=== PATIENT | male | born 1975 | race Caucasian/White ===

== ENCOUNTER 2020-08-19 21:42 | Emergency (ER) | payer BC, OTHER ==
[2020-08-19] MEDS ORDERED: DILTIAZEM HCL INJ 25 MG/5 ML VIAL IV ONE (21:56)
--- NOTE | 2020-08-19 22:04 | ER Document Report ---
ED Cardiac - General Chief Complaint: Chest Pain Stated Complaint: CHEST PAIN Time Seen by Provider: 08/19/20 21:56 Primary Care Provider: MAX WAGGONER MD [NO LOCAL MD] - Follow up as needed Mode of Arrival: Ambulatory Information source: Patient, Relative - is in room Notes: 44-year-old male arrives by POV with chief complaint of anterior chest pain and tachycardia since around 830 after he was taking a shower. Patient denies any prior history of similar problems. He denies any skin rash or any kind of spider bites animal bites use of illegal drugs. He is 1 pack/day cigarette smoker and drinks 2 beers per day. Patient was tested negative for coronavirus this week. His son-in-law tested positive last week and therefore the entire family was tested. Patient reports when he was 9 months old his mother from meningitis and his 77-year-old father has a history of atrial fibrillation. 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 His is with him nika. Patient does drink a 16 ounce and a 8 ounce drink of Mountain Dew daily as well as a morning coffee caffeinated. TRAVEL OUTSIDE OF THE [place] IN LAST 30 DAYS: No - Related Data Allergies/Adverse Reactions: No Known Allergies Allergy (Unverified 08/19/20 21:57) Past Medical History - Social History Smoking Status: Current Every Day Smoker Cigarette use (# per day): Yes - 1 ppd Chew tobacco use (# tins/day): No Smoking Education Provided: Yes Frequency of alcohol use: Occasional Drug Abuse: None Lives with: Family Family History: Reviewed & Not Pertinent Patient has suicidal ideation: No Patient has homicidal ideation: No Review of Systems - Review of Systems Constitutional: See HPI, Weakness EENT: No symptoms reported Cardiovascular: See HPI, Chest pain, Heart racing, Dizziness, Lightheaded Respiratory: No symptoms reported Gastrointestinal: No symptoms reported Genitourinary: No symptoms reported Male Genitourinary: No symptoms reported Musculoskeletal: No symptoms reported Skin: No symptoms reported Hematologic/Lymphatic: No symptoms reported Neurological/Psychological: No symptoms reported Physical Exam - Vital signs Vitals: Temp Pulse BP 97.5 F 236 H 113/73 08/19/20 21:58 08/19/20 21:58 08/19/20 21:58 Interpretation: Tachycardic - General General appearance: Appears well, Alert - HEENT Head: Normocephalic, Atraumatic Eyes: Normal Pupils: PERRL - Respiratory Respiratory status: No respiratory distress Chest status: Nontender Breath sounds: Normal Chest palpation: Normal - Cardiovascular Rhythm: Tachycardia Heart sounds: Normal auscultation Murmur: No - Abdominal Inspection: Normal Distension: No distension Bowel sounds: Normal Tenderness: Nontender Organomegaly: No organomegaly - Rectal Prostate: Other - deferred - Genitourinary Scrotum: Other - deferred - Back Back: Normal, Nontender - Extremities General upper extremity: Normal inspection, Nontender, Normal color, Normal ROM, Normal temperature General lower extremity: Normal inspection, Nontender, Normal color, Normal ROM, Normal temperature, Normal weight bearing. No: Saray's sign - Neurological Neuro grossly intact: Yes Cognition: Normal Orientation: AAOx4 [place] Coma Scale Eye Opening: Spontaneous [place] Coma Scale Verbal: Oriented [place] Coma Scale Motor: Obeys Commands [place] Coma Scale Total: 15 Speech: Normal Motor strength normal: LUE, RUE, LLE, RLE Sensory: Normal - Psychological Associated symptoms: Normal affect, Normal mood - Skin Skin Temperature: Warm Skin Moisture: Diaphoretic Course - Vital Signs Vital signs: Temp Pulse Resp BP Pulse Ox 97.5 F 115 H 24 H 123/85 86 L 08/19/20 21:58 08/19/20 22:05 08/19/20 22:01 08/19/20 22:01 08/19/20 22:01 - Laboratory Result Diagrams: 08/19/20 21:50 08/19/20 21:50 Laboratory results interpreted by me: 08/19/20 08/19/20 21:50 21:50 WBC 14.6 H Absolute Lymphs (auto) 6.0 H Sodium 136.8 L Glucose 171 H - Diagnostic Test Radiology reviewed: Reports reviewed - EKG Interpretation by Me EKG shows normal: Sinus rhythm Rate: Tachycardia Rhythm: SVT - 236 bpm with repeat of 114 bpm sinus tachycardia. This was read by myself as well as the EKG machine. Critical Care Note - Critical Care Note Comments: I discussed this case with Dr. Chilel at 2215 and he advises admission to hospitalist. He says consult him for admission. He agrees with Cardizem drip Zithromax Decadron and Pepcid IV. I spoke with Dr. Arnaldo Joyce and he will see patient in room. Discharge - Discharge Clinical Impression: SVT (supraventricular tachycardia), Cigarette smoker Condition: Stable Disposition: ADMITTED INPATIENT Admitting Provider: nicolas Unit Admitted: Telemetry Instructions: COVID-19 Guidance for Persons Under Investigation, Calcium Channel Blockers ([facility]) Additional Instructions: Transfer this patient to medical floor per Dr. Joyce Referrals: MAX WAGGONER MD [NO LOCAL MD] - Follow up as needed
[2020-08-19 22:20] LABS: ABSOLUTE BASOPHILS # (AUTO) 0.2 10^3/uL (0.0-0.2); ABSOLUTE EOSINOPHILS # (AUTO) 0.3 10^3/uL (0.0-0.6); ABSOLUTE MONOCYTES (AUTO) 1.1 10^3/uL (0.1-1.4); ABSOLUTE NEUT (AUTO) 6.9 10^3/uL (1.7-8.2); BASOPHILS % (AUTO) 1.3 % (0-2); EOSINOPHILS % (AUTO) 2.3 % (0-6); HEMATOCRIT 47.7 % (37.9-51.0); HEMOGLOBIN 16.1 g/dL (13.5-17.0); MEAN CORPUSCULAR HEMOGLOBIN 31.2 pg (27.0-33.4); MEAN CORPUSCULAR HGB CONC 33.7 g/dL (32.0-36.0); MEAN CORPUSCULAR VOLUME 93 fl (80-97); MONOCYTES % (AUTO) 7.8 % (3-13); PLATELET COUNT 324 10^3/uL (150-450); RED BLOOD COUNT 5.14 10^6/uL (4.35-5.55); RED CELL DISTRIBUTION WIDTH 13.3 % (11.5-14.0); SEGMENTED NEUTROPHILS % (AUTO) 47.6 % (42-78); TOTAL CELLS COUNTED % (AUTO) 100 %; WHITE BLOOD COUNT 14.6 10^3/uL (4.0-10.5)
[2020-08-19] MEDS ORDERED: DILTIAZEM HCL/D5W 125 MG/125 ML RTUINJ IV PRN (22:23)
[2020-08-19] MEDS ORDERED: AZITHROMYCIN INJ 500 MG VIAL IV ONE (22:24)
[2020-08-19] MEDS ORDERED: DEXAMETHASONE SOD PHOS INJ 10 MG/1 ML VIAL IV ONE (22:24)
[2020-08-19] MEDS ORDERED: FAMOTIDINE INJ/PF 20 MG/2 ML SDV IV ONE (22:25)
--- NOTE | 2020-08-19 22:28 | EKG REPORT ---
SEVERITY:- ABNORMAL ECG - SINUS TACHYCARDIA ST DEPRESSION, CONSIDER ISCHEMIA, DIFFUSE LDS : Confirmed by: Lashonda Matamoros MD 19-Aug-2020 22:28:13
--- NOTE | 2020-08-19 22:29 | EKG REPORT ---
SEVERITY:- ABNORMAL ECG - WIDE COMPLEX TACHYCARDIA LEFT BUNDLE BRANCH BLOCK : Confirmed by: Lashonda Matamoros MD 19-Aug-2020 22:28:26
[2020-08-19 22:35] LABS: ALBUMIN 4.4 g/dL (3.5-5.0); ALKALINE PHOSPHATASE 70 U/L (38-126); ANION GAP 14 (5-19); ASPARTATE AMINO TRANSFERASE 24 U/L (17-59); BILIRUBIN,DIRECT 0.1 mg/dL (0.0-0.4); BILIRUBIN,TOTAL 0.3 mg/dL (0.2-1.3); BLOOD UREA NITROGEN 15 mg/dL (7-20); CALCIUM 9.9 mg/dL (8.4-10.2); CARBON DIOXIDE 22 mmol/L (22-30); CHLORIDE 101 mmol/L (98-107); CREATINE KINASE 87 U/L (55-170); GLUCOSE 171 mg/dL (75-110); INTERNATIONAL RATION (INR) 0.95; PROTHROMBIN TIME 12.8 SEC (11.4-15.4)
[2020-08-19 22:47] LABS: NT PRO BNP 55 pg/mL (<125); TROPONIN I < 0.012 ng/mL
--- NOTE | 2020-08-19 22:52 | RADIOLOGY REPORT (SQ) ---
EXAM DESCRIPTION: Site: CHEST SINGLE VIEW RP: XR CHEST 1 VIEW CLINICAL HISTORY: 44 years Male; cp; COMPARISON: None. FINDINGS: Lungs: Lungs are clear, with no focal infiltrate, pneumothorax, or pleural effusion. Mediastinum: Mediastinum is within normal limits for this positioning. Bones: Bony structures are unremarkable. IMPRESSION: 1. No acute pulmonary findings.
[2020-08-19 22:59] LABS: APPEARANCE,URINE CLEAR; BILIRUBIN,URINE NEGATIVE (NEGATIVE); COLOR,URINE COLORLESS; GLUCOSE, URINE 50 mg/dL (NEGATIVE); KETONES,URINE NEGATIVE (NEGATIVE); LEUKOCYTE ESTERASE,URINE NEGATIVE (NEGATIVE); NITRITE,URINE NEGATIVE (NEGATIVE); PROTEIN,URINE NEGATIVE (NEGATIVE); URINE SPECIFIC GRAVITY 1.004; UROBILINOGEN,URINE NEGATIVE mg/dL (<2.0)
[2020-08-19 23:19] LABS: URINE AMPHETAMINES SCREEN UNCONFIRMED POSITIVE; URINE BARBITURATES SCREEN NEGATIVE; URINE BENZODIAZEPINES SCREEN NEGATIVE; URINE COCAINE SCREEN NEGATIVE; URINE MARIJUANA (THC) SCREEN NEGATIVE; URINE METHADONE SCREEN NEGATIVE; URINE PHENCYCLIDINE SCREEN NEGATIVE
[2020-08-20] MEDS ORDERED: ASPIRIN 81 MG TABLET, CHEWABLE PO ONE (01:50)
[2020-08-20] MEDS ORDERED: ACETAMINOPHEN 325 MG TABLET PO ONE (06:26)
--- NOTE | 2020-08-20 07:25 | ER Document Report ---
ED Medical Screen (RME) - General Chief Complaint: Palpitations Stated Complaint: CHEST PAIN Time Seen by Provider: 08/19/20 21:56 Mode of Arrival: Ambulatory Notes: Patient seen at 7:25 AM symptoms controlled heart rate 96 good blood pressure on Cardizem drip Stable for transfer TRAVEL OUTSIDE OF THE [place] IN LAST 30 DAYS: No - Related Data Allergies/Adverse Reactions: No Known Allergies Allergy (Unverified 08/19/20 21:57) Past Medical History - Social History Cigarette use (# per day): Yes - 1 ppd Chew tobacco use (# tins/day): No Frequency of alcohol use: Occasional Drug Abuse: None Physical Exam - Vital signs Vitals: Temp Pulse BP 97.5 F 236 H 113/73 08/19/20 21:58 08/19/20 21:58 08/19/20 21:58 Course - Vital Signs Vital signs: Temp Pulse Resp BP Pulse Ox 97.8 F 115 H 19 135/93 H 99 08/20/20 06:24 08/19/20 22:05 08/20/20 06:01 08/20/20 06:01 08/20/20 06:01 - Laboratory Result Diagrams: 08/19/20 21:50 08/19/20 21:50 Laboratory results interpreted by me: 08/19/20 08/19/20 08/19/20 21:50 21:50 22:30 WBC 14.6 H Absolute Lymphs (auto) 6.0 H Sodium 136.8 L Glucose 171 H Urine Glucose (UA) 50 H Doctor's Discharge - Discharge Clinical Impression: SVT (supraventricular tachycardia), Cigarette smoker Condition: Stable Disposition: ADMITTED INPATIENT
[2020-08-20 07:32] VITALS: BP 144/93
== END 2020-08-20 07:26 | disposition short-term general hospital (02) ==
LOC: ER 21:42 → UNDOADMIN 23:34 → EH 23:34 → UNDODISIN 08-20 07:33
DX: I47.1 Supraventricular tachycardia (principal); R00.2 Palpitations; R07.9 Chest pain, unspecified; F17.210 Nicotine dependence, cigarettes, uncomplicated; Z20.828 Contact with and (suspected) exposure to other viral communicable diseases
CPT/HCPCS: 93005; 99285; 96375; 96365; 36415 ×2; 87040; 82550; 83605; 83735; 85025; 85610; 87635; 80053; 81001; 84484 ×2; 80307; 83880; 71045; 93010; J3490 ×2; J0456; S0028; J1100; C9803